=== PATIENT | female | born 1990 | race Caucasian/White ===

== ENCOUNTER 2022-04-24 12:51 | Emergency (ER) | payer MEDICAID ==
[~2022-04-24] VITALS: Ht 162.6 cm; Wt 93.0 kg
[2022-04-24 13:00] VITALS: BP_SYST 118
--- NOTE | 2022-04-24 13:00 | NUR ---
Edilma hahn in [facility] - 04/24/22 at 1417 by SDNURPR NEAL COMPLETED SUBMITTED TO MD NORMAN.
--- NOTE | 2022-04-24 13:23 | NUR ---
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 Chief complaint Syncope, pt states felt dizzy, loss consciousness and fell to the floor. 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 Pt complains of general numbness upon episode. Pt is awake alert oriented x3.
--- NOTE | 2022-04-24 13:30 | NUR ---
ER at bedside examining patient.EKG COMPLETED BY EMT. SUBMITTED TO MD HENRY.
[2022-04-24 13:31] LABS: BASOPHILS # (AUTO) 0.1 K/uL (0.0-0.2); BASOPHILS % (AUTO) 0.6 % (0.0-2.0); EOSINOPHILS # (AUTO) 0.2 K/uL (0.0-0.4); EOSINOPHILS % (AUTO) 1.7 % (0.0-4.0); HEMATOCRIT 40.7 % (36-48); HEMOGLOBIN 13.9 g/dL (12.0-16.0); LYMPHOCYTES # (AUTO) 2.9 K/uL (1.0-5.5); LYMPHOCYTES % (AUTO) 33.6 % (20.5-51.5); MEAN CORPUSCULAR HEMOGLOBIN 30 pg (27-31); MEAN CORPUSCULAR HGB CONC 34 % (32-36); MEAN CORPUSCULAR VOLUME 88 fL (79.0-98.0); MONOCYTES # (AUTO) 0.5 K/uL (0.0-1.0); MONOCYTES % (AUTO) 5.8 % (1.7-9.3); NEUTROPHILS # (AUTO) 5.1 K/uL (1.8-7.7); NEUTROPHILS % (AUTO) 58.3 % (40.0-70.0); PLATELET COUNT (AUTO) 267 K/uL (130-430); RED BLOOD CELL COUNT(AUTO) 4.62 MIL/uL (4.2-6.2); WHITE BLOOD COUNT (AUTO) 8.8 K/uL (4.8-10.8)
[2022-04-24 14:04] LABS: ALANINE AMINOTRANSFERASE 56 U/L (12-78); ALBUMIN 3.3 g/dL (3.4-4.8); ANION GAP 8 (5-15); ASPARTATE AMINOTRANSFERASE 25 U/L (10-37); CALCIUM 8.5 mg/dL (8.4-11.0); CHLORIDE 103 mmol/L (98-107); CREATININE 0.85 mg/dL (0.55-1.30); GLUCOSE 107 mg/dL (70-99); TOTAL BILIRUBIN 0.3 mg/dL (0.0-1.0); UREA NITROGEN, BLOOD 14 mg/dL (8-21)
--- NOTE | 2022-04-24 14:05 | NUR ---
Patient given written and verbal discharge instructions and verbalizes understanding. ER MD discussed with patient the results and treatment provided. Patient in stable condition. ID arm band removed. Opportunity for questions provided and answered. Medication side effect fact sheet provided.
[2022-04-24 14:12] LABS: GFR AFRICAN AMERICAN 100 mL/min (>90)
[2022-04-24 14:40] VITALS: BP_SYST 129
== END 2022-04-24 14:40 | disposition home or self-care (01) ==
LOC: SED 12:51
DX: R55 Syncope and collapse (principal); R51.9 Headache, unspecified; Z79.899 Other long term (current) drug therapy
CPT/HCPCS: 36415; 70450-TC; 71045; 76376; 80053; 81025; 82550; 82962; 83605; 84484; 85025; 99285